=== PATIENT | female | born 1945 | race Caucasian/White ===

== ENCOUNTER 2023-12-22 09:01 | Observation (INO) ==
[2023-12-22] MEDS ORDERED: IOPAMIDOL 100 ML BOTTLE IV ONE (09:02)
[2023-12-22] MEDS: 0.9 % SODIUM CHLORIDE 500 ML IV ONE (09:36)
[2023-12-22] MEDS: morphine 2 MG/ML VIAL IV ONE (09:36)
[2023-12-22] MEDS: ONDANSETRON 4 MG/2 ML VIAL IV ONE ×2 (09:36→14:04)
[2023-12-22 10:12] LABS: Prothrombin Time 14.1 sec (11.9-14.5)
[2023-12-22 10:13] LABS: ALT/SGPT 5 U/L (<40); AST/SGOT 20 U/L (<32); Albumin/Globulin Ratio 1.6 (1.0-2.3); Alkaline Phosphatase 64 U/L (39-117); Bilirubin,Total 0.7 mg/dL (0.1-1.0); Blood Urea Nitrogen 38 mg/dL (8-23); Calcium 9.2 mg/dL (8.6-10.4); Carbon Dioxide 25 mmol/L (22-30); Chloride 99 mmol/L (96-108); Globulin 2.5 gm/dL (2.2-3.7); Glomerular Filtration Rate 54; Glucose 132 mg/dL (70-105); Potassium 4.1 mmol/L (3.3-5.1); Sodium 134 mmol/L (133-145)
[2023-12-22 10:21] LABS: Basophils # (Auto) 0.02 K/mcL (0.00-0.30); Basophils % (Auto) 0.2 % (0.0-2.0); Eosinophils # (Auto) 0.01 K/mcL (0.00-0.70); Eosinophils % (Auto) 0.1 % (0.0-7.0); Hematocrit 35.8 % (34.1-44.9); Hemoglobin 12.1 g/dL (11.2-15.7); Lymphocytes # (Auto) 0.34 K/mcL (1.50-4.80); Lymphocytes % (Auto) 2.9 % (15.5-49.0); Mean Cell Volume 98.9 fL (80.0-100.0); Mean Corpuscular HGB Conc 33.8 g/dL (31.0-36.0); Mean Platelet Volume 11.9 fL (8.8-12.5); Monocytes # (Auto) 1.16 K/mcL (0.10-0.90); Neutrophils % (Auto) 86.6 % (38.0-78.0); Platelet Count 174 K/mcL (140-440); RBC 3.62 M/mcL (3.59-5.38); Red Cell Distribution Width 14.4 % (11.5-14.5); WBC 11.7 K/mcL (4.5-11.0)
[2023-12-22] MEDS: fentaNYL 100 MCG/2 ML VIAL IV ONE (14:04)
[2023-12-22] MEDS ORDERED: ACETAMINOPHEN 325 MG TABLET PO PRN (15:01)
[2023-12-22] MEDS: 0.9 % SODIUM CHLORIDE 10 ML SYRINGE IV SCH (15:54)
[2023-12-22] MEDS: ONDANSETRON 4 MG/2 ML VIAL IV PRN (18:09)
[2023-12-22] MEDS: morphine 4 MG/ML VIAL IV PRN (19:12)
[2023-12-22] MEDS: PANTOPRAZOLE 40 MG TABLET PO SCH (20:41)
[2023-12-22] MEDS ORDERED: traZODone HCL 50 MG TABLET PO PRN (21:00)
[2023-12-22] MEDS: oxyCODONE IR 5 MG TABLET PO PRN (23:43)
[2023-12-23] MEDS: IPRATROPIUM/ALBUTEROL 3 ML AMPUL.NEB NEB PRN (05:11)
[2023-12-23 07:07] LABS: Basophils # (Auto) 0.02 K/mcL (0.00-0.30); Basophils % (Auto) 0.3 % (0.0-2.0); Eosinophils # (Auto) 0.08 K/mcL (0.00-0.70); Eosinophils % (Auto) 1.2 % (0.0-7.0); Hematocrit 31.5 % (34.1-44.9); Hemoglobin 10.5 g/dL (11.2-15.7); Lymphocytes # (Auto) 0.27 K/mcL (1.50-4.80); Lymphocytes % (Auto) 4.1 % (15.5-49.0); Mean Cell Volume 100.6 fL (80.0-100.0); Mean Corpuscular HGB Conc 33.3 g/dL (31.0-36.0); Mean Platelet Volume 11.4 fL (8.8-12.5); Monocytes # (Auto) 0.75 K/mcL (0.10-0.90); Monocytes % (Auto) 11.4 % (1.0-12.0); Neutrophils % (Auto) 82.7 % (38.0-78.0); Platelet Count 125 K/mcL (140-440); RBC 3.13 M/mcL (3.59-5.38); Red Cell Distribution Width 14.7 % (11.5-14.5); WBC 6.6 K/mcL (4.5-11.0)
[2023-12-23 07:39] LABS: Blood Urea Nitrogen 27 mg/dL (8-23); Calcium 8.8 mg/dL (8.6-10.4); Carbon Dioxide 25 mmol/L (22-30); Chloride 101 mmol/L (96-108); Glomerular Filtration Rate 62; Glucose 126 mg/dL (70-105); Potassium 4.1 mmol/L (3.3-5.1); Sodium 135 mmol/L (133-145)
[2023-12-23] MEDS ORDERED: ALBUTEROL SULFATE 60 PUFF INHALER INH PRN (09:25)
[2023-12-23] MEDS: MONTELUKAST 10 MG TABLET PO SCH (09:29)
[2023-12-23] MEDS: CARVEDILOL 3.125 MG TABLET PO SCH (09:29)
[2023-12-23] MEDS: POTASSIUM CHLORIDE 10 MEQ TABLET PO SCH (09:29)
[2023-12-23] MEDS: SPIRONOLACTONE 25 MG TABLET PO SCH (09:29)
[2023-12-23] MEDS: LEVOTHYROXINE 88 MCG TABLET PO SCH (09:30)
[2023-12-23] MEDS: FUROSEMIDE 40 MG TABLET PO SCH (09:30)
[2023-12-23] MEDS: LISINOPRIL 5 MG TABLET PO SCH (09:30)
[2023-12-23] MEDS: METOCLOPRAMIDE 10 MG/2 ML VIAL IV PRN (12:02)
[2023-12-23] MEDS: ALBUTEROL SULFATE 2.5 MG/3 ML NEBULIZER NEB ONE (12:10)
[2023-12-23] MEDS ORDERED: NON FORMULARY MEDICATION 1 DOSE MISCELL TOPICAL PRN (17:54)
[2023-12-23] MEDS: SIMVASTATIN 40 MG TABLET PO SCH (22:13)
[2023-12-23] MEDS: FLUTICASONE/SALMETEROL 250/50 INHALER #14 INH SCH (22:13)
[2023-12-24 06:44] LABS: Basophils # (Auto) 0.03 K/mcL (0.00-0.30); Basophils % (Auto) 0.5 % (0.0-2.0); Eosinophils # (Auto) 0.13 K/mcL (0.00-0.70); Eosinophils % (Auto) 2.1 % (0.0-7.0); Hematocrit 29.7 % (34.1-44.9); Hemoglobin 9.9 g/dL (11.2-15.7); Lymphocytes % (Auto) 6.6 % (15.5-49.0); Mean Corpuscular HGB Conc 33.3 g/dL (31.0-36.0); Mean Platelet Volume 11.8 fL (8.8-12.5); Monocytes # (Auto) 0.73 K/mcL (0.10-0.90); Neutrophils % (Auto) 78.5 % (38.0-78.0); Platelet Count 130 K/mcL (140-440); RBC 2.94 M/mcL (3.59-5.38); Red Cell Distribution Width 14.5 % (11.5-14.5); WBC 6.1 K/mcL (4.5-11.0)
[2023-12-24 06:59] LABS: Blood Urea Nitrogen 26 mg/dL (8-23); Calcium 8.9 mg/dL (8.6-10.4); Carbon Dioxide 28 mmol/L (22-30); Chloride 100 mmol/L (96-108); Glomerular Filtration Rate 48; Glucose 100 mg/dL (70-105); Potassium 4.4 mmol/L (3.3-5.1); Sodium 136 mmol/L (133-145)
[2023-12-24] MEDS: IPRATROPIUM ALBUTEROL INH SCH (08:10)
[2023-12-24] MEDS: TIOTROPIUM BROMIDE 18 MCG INHALANT INH SCH (08:10)
== END 2023-12-24 12:55 | disposition home or self-care (01) ==
LOC: MEDSUR 09:01 → ED 09:01 → MEDSUR 14:49
PROVIDERS: ADMIT Surgery Surgical Critical Care; ATTEND Internal Medicine

== ENCOUNTER 2024-02-13 00:43 | Inpatient (IN) ==
[2024-02-13] MEDS ORDERED: IOPAMIDOL 100 ML BOTTLE IV ONE (00:44)
[2024-02-13] MEDS: morphine 2 MG/ML VIAL IV ONE (01:15)
[2024-02-13] MEDS: ONDANSETRON 4 MG/2 ML VIAL IV ONE (01:15)
[2024-02-13 01:48] LABS: Basophils # (Auto) 0.06 K/mcL (0.00-0.30); Basophils % (Auto) 0.3 % (0.0-2.0); Eosinophils # (Auto) 0.17 K/mcL (0.00-0.70); Hematocrit 36.6 % (34.1-44.9); Hemoglobin 12.3 g/dL (11.2-15.7); Lymphocytes # (Auto) 0.71 K/mcL (1.50-4.80); Mean Cell Volume 102.2 fL (80.0-100.0); Mean Corpuscular HGB Conc 33.6 g/dL (31.0-36.0); Mean Platelet Volume 12.4 fL (8.8-12.5); Monocytes % (Auto) 5.1 % (1.0-12.0); Neutrophils % (Auto) 89.1 % (38.0-78.0); Platelet Count 210 K/mcL (140-440); RBC 3.58 M/mcL (3.59-5.38); Red Cell Distribution Width 14.2 % (11.5-14.5); WBC 17.6 K/mcL (4.5-11.0)
[2024-02-13 02:03] LABS: ALT/SGPT < 5 U/L (<40); AST/SGOT 17 U/L (<32); Albumin 4.3 gm/dL (3.2-5.2); Albumin/Globulin Ratio 1.5 (1.0-2.3); Alkaline Phosphatase 84 U/L (39-117); Bilirubin,Total 0.4 mg/dL (0.1-1.0); Blood Urea Nitrogen 27 mg/dL (8-23); Calcium 9.7 mg/dL (8.6-10.4); Carbon Dioxide 22 mmol/L (22-30); Chloride 99 mmol/L (96-108); Globulin 2.8 gm/dL (2.2-3.7); Glomerular Filtration Rate 39; Glucose 210 mg/dL (70-105); Sodium 135 mmol/L (133-145)
[2024-02-13] MEDS: HYDROmorphone 1 MG/ML SYRINGE IV ONE (03:24)
[2024-02-13] MEDS: ONDANSETRON 4 MG/2 ML VIAL IV PRN (04:45)
[2024-02-13] MEDS: HYDROmorphone 0.5 MG/0.5 ML SYRINGE IV PRN (05:36)
[2024-02-13] MEDS: DEXTROSE 5%-LR 1,000 ML IV SCH ×2 (05:36→17:19)
[2024-02-13] MEDS: METOCLOPRAMIDE 10 MG/2 ML VIAL IV PRN (17:19)
[2024-02-14 06:25] LABS: Blood Urea Nitrogen 29 mg/dL (8-23); Calcium 9.2 mg/dL (8.6-10.4); Carbon Dioxide 24 mmol/L (22-30); Chloride 102 mmol/L (96-108); Glomerular Filtration Rate 62; Glucose 154 mg/dL (70-105); Potassium 4.2 mmol/L (3.3-5.1); Sodium 137 mmol/L (133-145)
[2024-02-14 06:27] LABS: Hematocrit 31.4 % (34.1-44.9); Hemoglobin 10.4 g/dL (11.2-15.7); Mean Cell Volume 102.6 fL (80.0-100.0); Mean Corpuscular HGB Conc 33.1 g/dL (31.0-36.0); Mean Platelet Volume 12.1 fL (8.8-12.5); Platelet Count 150 K/mcL (140-440); RBC 3.06 M/mcL (3.59-5.38); Red Cell Distribution Width 14.3 % (11.5-14.5)
[2024-02-14] MEDS: DEXTROSE 5%-LR 1,000 ML IV SCH ×2 (07:30→10:54)
[2024-02-14] MEDS ORDERED: Ipratropium-Albuterol [Combivent Respimat] 20-100 mcg Inhaler INH PRN (11:08)
[2024-02-14] MEDS: CARVEDILOL 3.125 MG TABLET PO SCH (11:31)
[2024-02-14] MEDS: FLUTICASONE/SALMETEROL 250/50 INHALER #14 INH SCH (20:29)
[2024-02-14] MEDS: IPRATROPIUM/ALBUTEROL 3 ML AMPUL.NEB NEB PRN (23:58)
[2024-02-15] MEDS: IPRATROPIUM/ALBUTEROL 3 ML AMPUL.NEB NEB ONE (00:04)
[2024-02-15 06:35] LABS: Hematocrit 27.6 % (34.1-44.9); Hemoglobin 9.2 g/dL (11.2-15.7); Mean Cell Volume 103.8 fL (80.0-100.0); Mean Corpuscular HGB Conc 33.3 g/dL (31.0-36.0); Mean Platelet Volume 12.2 fL (8.8-12.5); Platelet Count 135 K/mcL (140-440); RBC 2.66 M/mcL (3.59-5.38); Red Cell Distribution Width 14.6 % (11.5-14.5); WBC 6.3 K/mcL (4.5-11.0)
[2024-02-15 07:07] LABS: Blood Urea Nitrogen 19 mg/dL (8-23); Calcium 9.2 mg/dL (8.6-10.4); Carbon Dioxide 27 mmol/L (22-30); Chloride 101 mmol/L (96-108); Glomerular Filtration Rate 71; Glucose 124 mg/dL (70-105); Sodium 135 mmol/L (133-145)
[2024-02-15] MEDS: LEVOTHYROXINE 88 MCG TABLET PO SCH (07:39)
[2024-02-15] MEDS: TIOTROPIUM BROMIDE 18 MCG INHALANT INH SCH (08:30)
[2024-02-15] MEDS: SPIRONOLACTONE 25 MG TABLET PO SCH (08:30)
[2024-02-15] MEDS: LISINOPRIL 5 MG TABLET PO SCH (08:31)
[2024-02-15] MEDS: ACETAMINOPHEN 650 MG/65 ML BAG IV PRN (19:08)
[2024-02-16] MEDS: IPRATROPIUM/ALBUTEROL 3 ML AMPUL.NEB NEB SCH (06:54)
[2024-02-16 07:41] LABS: Blood Urea Nitrogen 13 mg/dL (8-23); Carbon Dioxide 25 mmol/L (22-30); Chloride 104 mmol/L (96-108); Glomerular Filtration Rate 71; Glucose 115 mg/dL (70-105); Potassium 3.8 mmol/L (3.3-5.1); Sodium 138 mmol/L (133-145)
[2024-02-16 08:02] LABS: Basophils # (Auto) 0.03 K/mcL (0.00-0.30); Basophils % (Auto) 0.7 % (0.0-2.0); Eosinophils % (Auto) 2.2 % (0.0-7.0); Hematocrit 27.9 % (34.1-44.9); Hemoglobin 9.4 g/dL (11.2-15.7); Lymphocytes # (Auto) 0.41 K/mcL (1.50-4.80); Lymphocytes % (Auto) 8.9 % (15.5-49.0); Mean Cell Volume 103.7 fL (80.0-100.0); Mean Corpuscular HGB Conc 33.7 g/dL (31.0-36.0); Mean Platelet Volume 12.2 fL (8.8-12.5); Monocytes % (Auto) 10.9 % (1.0-12.0); Neutrophils % (Auto) 77.1 % (38.0-78.0); Platelet Count 150 K/mcL (140-440); RBC 2.69 M/mcL (3.59-5.38); WBC 4.6 K/mcL (4.5-11.0)
[2024-02-16] MEDS: BISACODYL 10 MG SUPP.RECT PR SCH (08:31)
[2024-02-16] MEDS: FUROSEMIDE 40 MG/4 ML VIAL IV ONE (08:32)
[2024-02-17 07:35] LABS: Basophils # (Auto) 0.02 K/mcL (0.00-0.30); Basophils % (Auto) 0.4 % (0.0-2.0); Eosinophils % (Auto) 2.1 % (0.0-7.0); Hematocrit 28.7 % (34.1-44.9); Hemoglobin 9.6 g/dL (11.2-15.7); Lymphocytes % (Auto) 12.8 % (15.5-49.0); Mean Cell Volume 101.8 fL (80.0-100.0); Mean Corpuscular HGB Conc 33.4 g/dL (31.0-36.0); Mean Platelet Volume 11.5 fL (8.8-12.5); Monocytes # (Auto) 0.53 K/mcL (0.10-0.90); Monocytes % (Auto) 11.3 % (1.0-12.0); Neutrophils % (Auto) 72.1 % (38.0-78.0); Platelet Count 168 K/mcL (140-440); RBC 2.82 M/mcL (3.59-5.38); Red Cell Distribution Width 13.8 % (11.5-14.5); WBC 4.7 K/mcL (4.5-11.0)
[2024-02-17 09:14] LABS: Blood Urea Nitrogen 10 mg/dL (8-23); Carbon Dioxide 26 mmol/L (22-30); Chloride 104 mmol/L (96-108); Glomerular Filtration Rate 83; Glucose 108 mg/dL (70-105); Potassium 3.3 mmol/L (3.3-5.1); Sodium 138 mmol/L (133-145)
[2024-02-17] MEDS: FUROSEMIDE 20 MG/2 ML VIAL IV ONE (11:03)
[2024-02-17] MEDS: IPRATROPIUM/ALBUTEROL 3 ML AMPUL.NEB NEB SCH (11:12)
[2024-02-17] MEDS: CARVEDILOL 3.125 MG TABLET PO SCH (20:32)
[2024-02-17 21:08] LABS: Blood Urea Nitrogen 11 mg/dL (8-23); Calcium 8.8 mg/dL (8.6-10.4); Carbon Dioxide 26 mmol/L (22-30); Chloride 101 mmol/L (96-108); Glomerular Filtration Rate 71; Glucose 114 mg/dL (70-105); Potassium 3.1 mmol/L (3.3-5.1); Sodium 136 mmol/L (133-145)
[2024-02-17] MEDS: POTASSIUM CHLORIDE 20 MEQ in DEXTROSE 5% IN WATER 250 ML IV ONE (22:04)
[2024-02-17] MEDS: POTASSIUM CHLORIDE 20 MEQ PACKET PO ONE (22:05)
[2024-02-17] MEDS: POTASSIUM CHLORIDE 20 MEQ/10 ML VIAL IV ONE (22:10)
[2024-02-18 06:51] LABS: Basophils # (Auto) 0.02 K/mcL (0.00-0.30); Basophils % (Auto) 0.3 % (0.0-2.0); Eosinophils # (Auto) 0.16 K/mcL (0.00-0.70); Eosinophils % (Auto) 2.6 % (0.0-7.0); Hematocrit 30.9 % (34.1-44.9); Hemoglobin 10.4 g/dL (11.2-15.7); Lymphocytes # (Auto) 0.81 K/mcL (1.50-4.80); Lymphocytes % (Auto) 13.2 % (15.5-49.0); Mean Cell Volume 102.7 fL (80.0-100.0); Mean Corpuscular HGB Conc 33.7 g/dL (31.0-36.0); Mean Platelet Volume 11.2 fL (8.8-12.5); Monocytes # (Auto) 0.69 K/mcL (0.10-0.90); Monocytes % (Auto) 11.3 % (1.0-12.0); Neutrophils % (Auto) 70.3 % (38.0-78.0); Platelet Count 181 K/mcL (140-440); RBC 3.01 M/mcL (3.59-5.38); Red Cell Distribution Width 13.7 % (11.5-14.5); WBC 6.1 K/mcL (4.5-11.0)
[2024-02-18] MEDS: FUROSEMIDE 20 MG/2 ML VIAL IV SCH (07:05)
[2024-02-18 07:47] LABS: Blood Urea Nitrogen 8 mg/dL (8-23); Calcium 9.3 mg/dL (8.6-10.4); Carbon Dioxide 26 mmol/L (22-30); Chloride 101 mmol/L (96-108); Glomerular Filtration Rate 71; Glucose 112 mg/dL (70-105); Potassium 4.3 mmol/L (3.3-5.1); Sodium 139 mmol/L (133-145)
== END 2024-02-18 15:21 | disposition home or self-care (01) | DRG 393 ==
LOC: ED 00:43 → MEDSUR 00:43
PROVIDERS: ADMIT Surgery Surgical Critical Care; ATTEND Surgery Surgical Critical Care

== ENCOUNTER 2024-12-15 10:48 | Inpatient (IN) ==
[2024-12-15] MEDS ORDERED: IOPAMIDOL 100 ML BOTTLE IV ONE (10:49)
[2024-12-15] MEDS: FUROSEMIDE 100 MG/10 ML VIAL IV ONE (11:24)
[2024-12-15] MEDS: IPRATROPIUM/ALBUTEROL 3 ML AMPUL.NEB NEB ONE ×2 (11:28→14:00)
[2024-12-15 11:32] LABS: Basophils # (Auto) 0.08 K/mcL (0.00-0.30); Basophils % (Auto) 0.8 % (0.0-2.0); Eosinophils # (Auto) 0.23 K/mcL (0.00-0.70); Eosinophils % (Auto) 2.3 % (0.0-7.0); Hematocrit 34.6 % (34.1-44.9); Hemoglobin 11.0 g/dL (11.2-15.7); Lymphocytes # (Auto) 1.30 K/mcL (1.50-4.80); Lymphocytes % (Auto) 12.7 % (15.5-49.0); Mean Corpuscular HGB Conc 31.8 g/dL (31.0-36.0); Monocytes # (Auto) 0.89 K/mcL (0.10-0.90); Monocytes % (Auto) 8.7 % (1.0-12.0); Neutrophils % (Auto) 74.6 % (38.0-78.0); Platelet Count 204 K/mcL (140-440); RBC 3.09 M/mcL (3.59-5.38); WBC 10.2 K/mcL (4.5-11.0)
[2024-12-15] MEDS: LORazepam 2 MG/ML VIAL IV ONE ×2 (11:37→13:37)
[2024-12-15 11:50] LABS: INR 1.1 (0.9-1.1); Prothrombin Time 14.6 sec (11.9-14.5)
[2024-12-15] MEDS: CEFEPIME 1 GM VIAL IV ONE (12:19)
[2024-12-15] MEDS: VANCOMYCIN 1,500 MG in 0.9 % SODIUM CHLORIDE 500 ML IV ONE (12:20)
[2024-12-15 12:40] LABS: VBG HCO3 19.9 mmol/L (24.0-28.0); VBG PCO2 47.9 mmHg (41.0-51.0); VBG PH 7.24 U (7.32-7.42); VBG PO2 109.1 mmHg (25.0-40.0)
[2024-12-15 12:44] LABS: ALT/SGPT 5 U/L (<40); AST/SGOT 22 U/L (<32); Albumin 4.4 gm/dL (3.2-5.2); Albumin/Globulin Ratio 1.6 (1.0-2.3); Alkaline Phosphatase 79 U/L (39-117); Anion Gap 18.0 (8.0-16.0); Bilirubin,Total 0.5 mg/dL (0.1-1.0); Blood Urea Nitrogen 18 mg/dL (8-23); Calcium 9.2 mg/dL (8.6-10.4); Carbon Dioxide 22 mmol/L (22-30); Chloride 95 mmol/L (96-108); Globulin 2.8 gm/dL (2.2-3.7); Glucose 343 mg/dL (70-105); Potassium 4.7 mmol/L (3.3-5.1); Sodium 135 mmol/L (133-145)
[2024-12-15] MEDS: ALBUTEROL SULFATE 2.5 MG/3 ML NEBULIZER NEB ONE (14:14)
[2024-12-15 15:06] LABS: Hypochromasia 1+ (None Seen); Macrocytosis 2+ (None Seen); RBC Morphology ABNORMAL (Normal)
[2024-12-15 15:13] LABS: C-Reactive Protein 0.03 mg/dL (0.03-0.80)
[2024-12-15] MEDS ORDERED: POTASSIUM CHLORIDE 20 MEQ TABLET PO PRN ×2 (15:52)
[2024-12-15] MEDS ORDERED: ONDANSETRON 4 MG/2 ML VIAL IV PRN (15:52)
[2024-12-15] MEDS ORDERED: IPRATROPIUM/ALBUTEROL 3 ML AMPUL.NEB NEB PRN (15:52)
[2024-12-15] MEDS ORDERED: POLYETHYLENE GLYCOL 3350 17 GM PACKET PO PRN (15:52)
[2024-12-15] MEDS ORDERED: METOCLOPRAMIDE 10 MG/2 ML VIAL IV PRN (15:52)
[2024-12-15] MEDS ORDERED: ENALAPRILAT 1.25 MG/ML VIAL IV PRN (15:52)
[2024-12-15] MEDS ORDERED: METOPROLOL TARTRATE 5 MG/5 ML VIAL IV PRN (15:52)
[2024-12-15] MEDS ORDERED: POTASSIUM CHLORIDE 40 MEQ in DEXTROSE 5% IN WATER 500 ML IV PRN (15:52)
[2024-12-15] MEDS ORDERED: DEXTROSE 50% 50 ML VIAL IV PRN (15:52)
[2024-12-15] MEDS ORDERED: ACETAMINOPHEN 325 MG TABLET PO PRN (15:52)
[2024-12-15] MEDS ORDERED: DEXTROSE 31 GM ORAL.SUSP PO PRN (15:52)
[2024-12-15] MEDS ORDERED: MAGNESIUM SULFATE 2 GM/50 ML BAG IV PRN (15:52)
[2024-12-15] MEDS ORDERED: SENNOSIDES 1 TABLET PO PRN (15:52)
[2024-12-15] MEDS: cefTRIAXone 1 GM VIAL IV SCH (16:17)
[2024-12-15] MEDS: AZITHROMYCIN 500 MG in DEXTROSE 5% IN WATER 250 ML IV SCH (17:07)
[2024-12-15] MEDS: INSULIN LISPRO 1 UNIT/0.01 ML UNIT SQ SCH (17:08)
[2024-12-15] MEDS: IPRATROPIUM/ALBUTEROL 3 ML AMPUL.NEB NEB SCH (17:51)
[2024-12-15] MEDS: DIAZEPAM 10 MG/2 ML SYRINGE IV PRN (20:15)
[2024-12-15] MEDS: FUROSEMIDE 40 MG/4 ML VIAL IV SCH (20:33)
[2024-12-15] MEDS: HEPARIN 5,000 UNIT/ML VIAL SQ SCH (20:33)
[2024-12-15] MEDS: DOCUSATE SODIUM 100 MG CAPSULE PO SCH (20:35)
[2024-12-15] MEDS: SIMVASTATIN 40 MG TABLET PO SCH (20:35)
[2024-12-15] MEDS: FLUTICASONE/SALMETEROL 250/50 INHALER #14 INH SCH (21:25)
[2024-12-15] MEDS: DEXMEDETOMIDINE 400 MCG in PREMIX 1 BAG IV SCH (23:20)
[2024-12-15] MEDS: 0.9 % SODIUM CHLORIDE 250 ML IV SCH (23:30)
[2024-12-16] MEDS: DEXMEDETOMIDINE 100 ML IV ONE (00:59)
[2024-12-16 06:44] LABS: Basophils # (Auto) 0 K/mcL (0.00-0.30); Basophils % (Auto) 0 % (0.0-2.0); Eosinophils # (Auto) 0 K/mcL (0.00-0.70); Eosinophils % (Auto) 0 % (0.0-7.0); Hematocrit 29.1 % (34.1-44.9); Hemoglobin 9.6 g/dL (11.2-15.7); Lymphocytes # (Auto) 0.29 K/mcL (1.50-4.80); Lymphocytes % (Auto) 3.5 % (15.5-49.0); Mean Corpuscular HGB Conc 33.0 g/dL (31.0-36.0); Monocytes # (Auto) 0.17 K/mcL (0.10-0.90); Monocytes % (Auto) 2.1 % (1.0-12.0); Neutrophils % (Auto) 94.0 % (38.0-78.0); Platelet Count 120 K/mcL (140-440); RBC 2.66 M/mcL (3.59-5.38); WBC 8.2 K/mcL (4.5-11.0)
[2024-12-16 06:47] LABS: ALT/SGPT 22 U/L (<40); AST/SGOT 71 U/L (<32); Albumin 4.3 gm/dL (3.2-5.2); Albumin/Globulin Ratio 1.7 (1.0-2.3); Alkaline Phosphatase 68 U/L (39-117); Anion Gap 14.0 (8.0-16.0); Bilirubin,Direct 0.4 mg/dL (<0.3); Bilirubin,Total 0.7 mg/dL (0.1-1.0); Blood Urea Nitrogen 24 mg/dL (8-23); Calcium 9.0 mg/dL (8.6-10.4); Carbon Dioxide 26 mmol/L (22-30); Chloride 97 mmol/L (96-108); Globulin 2.6 gm/dL (2.2-3.7); Glucose 123 mg/dL (70-105); Phosphorous 3.8 mg/dL (2.5-4.5); Potassium 3.9 mmol/L (3.3-5.1); Sodium 137 mmol/L (133-145); Triglycerides 69 mg/dL (<150); Uric Acid 9.0 mg/dL (2.5-8.0)
[2024-12-16] MEDS: PANTOPRAZOLE 40 MG TABLET PO SCH (07:09)
[2024-12-16] MEDS ORDERED: PANTOPRAZOLE 40 MG VIAL IV SCH (07:30)
[2024-12-16] MEDS: LISINOPRIL 5 MG TABLET PO SCH (08:26)
[2024-12-16] MEDS: LEVOTHYROXINE 88 MCG TABLET PO SCH (08:27)
[2024-12-16] MEDS: AMIODARONE HCL 200 MG TABLET PO SCH (08:27)
[2024-12-16] MEDS: MONTELUKAST 10 MG TABLET PO SCH (08:27)
[2024-12-16] MEDS: SPIRONOLACTONE 25 MG TABLET PO SCH (08:27)
[2024-12-16] MEDS: TIOTROPIUM BROMIDE 18 MCG INHALANT INH SCH (08:28)
[2024-12-16] MEDS: POTASSIUM CHLORIDE 10 MEQ TABLET PO SCH (10:48)
[2024-12-16] MEDS: 0.9 % SODIUM CHLORIDE 10 ML SYRINGE IV SCH (20:26)
[2024-12-16] MEDS: SIMVASTATIN 40 MG TABLET PO SCH (20:27)
[2024-12-17 06:44] LABS: Basophils # (Auto) 0.01 K/mcL (0.00-0.30); Basophils % (Auto) 0.1 % (0.0-2.0); Eosinophils # (Auto) 0 K/mcL (0.00-0.70); Eosinophils % (Auto) 0 % (0.0-7.0); Hematocrit 30.2 % (34.1-44.9); Hemoglobin 9.5 g/dL (11.2-15.7); Lymphocytes # (Auto) 0.27 K/mcL (1.50-4.80); Lymphocytes % (Auto) 2.3 % (15.5-49.0); Mean Corpuscular HGB Conc 31.5 g/dL (31.0-36.0); Monocytes # (Auto) 0.30 K/mcL (0.10-0.90); Monocytes % (Auto) 2.6 % (1.0-12.0); Neutrophils % (Auto) 94.7 % (38.0-78.0); Platelet Count 147 K/mcL (140-440); RBC 2.67 M/mcL (3.59-5.38); WBC 11.6 K/mcL (4.5-11.0)
[2024-12-17] MEDS: LEVOTHYROXINE 88 MCG TABLET PO SCH (07:02)
[2024-12-17 07:07] LABS: ALT/SGPT 21 U/L (<40); AST/SGOT 43 U/L (<32); Albumin 4.0 gm/dL (3.2-5.2); Albumin/Globulin Ratio 1.5 (1.0-2.3); Alkaline Phosphatase 61 U/L (39-117); Anion Gap 17.0 (8.0-16.0); Bilirubin,Direct < 0.2 mg/dL (0-0.3); Bilirubin,Total 0.4 mg/dL (0.1-1.0); Blood Urea Nitrogen 38 mg/dL (8-23); Calcium 9.5 mg/dL (8.6-10.4); Carbon Dioxide 23 mmol/L (22-30); Chloride 94 mmol/L (96-108); Globulin 2.6 gm/dL (2.2-3.7); Glucose 129 mg/dL (70-105); Phosphorous 3.3 mg/dL (2.5-4.5); Potassium 4.2 mmol/L (3.3-5.1); Sodium 134 mmol/L (133-145); Triglycerides 71 mg/dL (<150); Uric Acid 8.1 mg/dL (2.5-8.0)
[2024-12-17] MEDS ORDERED: POTASSIUM CHLORIDE 10 MEQ TABLET PO SCH (08:00)
== END 2024-12-17 11:35 | disposition home or self-care (01) | DRG 189 ==
LOC: ED 10:48 → ICU 15:47
PROVIDERS: ADMIT Internal Medicine; ATTEND Internal Medicine